=== PATIENT | female | born 1985 | race Caucasian/White ===

== ENCOUNTER 2019-06-24 13:48 | Outpatient (CLI) | payer OTHER | END 2019-06-24 13:55 | disposition home or self-care (01) | LOC: EKG 13:48 | DX: N80.5 Endometriosis of intestine (principal); D37.5 Neoplasm of uncertain behavior of rectum; D64.89 Other specified anemias; Z01.818 Encounter for other preprocedural examination; R79.89 Other specified abnormal findings of blood chemistry; Z01.812 Encounter for preprocedural laboratory examination; Z01.810 Encounter for preprocedural cardiovascular examination ==

== ENCOUNTER 2019-06-30 13:45 | Inpatient (IN) | payer OTHER ==
[~2019-06-30] VITALS: Ht 162.6 cm; Wt 89.8 kg
[2019-06-30] MEDS ORDERED: SERAQUEL PO (14:53)
[2019-06-30] MEDS ORDERED: TOPAMAX PO (14:53)
[2019-06-30] MEDS ORDERED: LITHIUM PO (14:54)
[2019-06-30] MEDS ORDERED: CLONAZEPAM0.5 M1 PO (14:54)
[2019-06-30] MEDS ORDERED: BELSOMRA10 MG PO (14:55)
[2019-06-30] MEDS ORDERED: SYNTH PO (14:55)
[2019-06-30] MEDS ORDERED: PRILOSEC OTC20 MG PO (14:56)
[2019-06-30] MEDS ORDERED: ZANTAC150 M3 PO (14:56)
[2019-06-30] MEDS ORDERED: IMITREX100 MG PO (14:56)
[2019-07-08] MEDS ORDERED: LITHIUM CARBON450 MG PO (11:01)
[2019-07-08] MEDS ORDERED: QUETIAPINE FUM400 MG PO (11:03)
[2019-07-08] MEDS ORDERED: TOPIRAMATE100 MG PO (11:04)
[2019-07-08] MEDS ORDERED: SYNTHROID50 MCG PO (11:04)
[2019-07-12] MEDS ORDERED: OXYC1TAB9 PO (15:15)
[2019-07-12] MEDS ORDERED: HYOSCYAMINE0.125 M1 SL (15:15)
[2019-07-12] MEDS ORDERED: IMODIUM A-D2 M2 PO (15:16)
[2019-07-12] MEDS ORDERED: INTESTINEX680 M1 PO (15:16)
[2019-07-12] MEDS ORDERED: ZANTAC150 M3 PO (15:16)
== END 2019-07-12 19:36 | disposition home or self-care (01) | DRG 331 ==
LOC: O/R 13:45 → SURH 07-08 07:30 → OB/GYN 07-12 17:20 → SURH 07-12 17:23
PROVIDERS: Surgery; ADMIT Obstetrics & Gynecology Gynecologic Oncology
PROC: 07TB4ZZ Resection of Mesenteric Lymphatic, Percutaneous Endoscopic Approach (ICD-10-PCS; 2019-07-08)
PROC: 0D1B4Z4 Bypass Ileum to Cutaneous, Percutaneous Endoscopic Approach (ICD-10-PCS; 2019-07-08)
PROC: 0DJD8ZZ Inspection of Lower Intestinal Tract, Via Natural or Artificial Opening Endoscopic (ICD-10-PCS; 2019-07-08)
PROC: 0UT94ZZ Resection of Uterus, Percutaneous Endoscopic Approach (ICD-10-PCS; 2019-07-08)
PROC: 0UT14ZZ Resection of Left Ovary, Percutaneous Endoscopic Approach (ICD-10-PCS; 2019-07-08)
PROC: 0UT64ZZ Resection of Left Fallopian Tube, Percutaneous Endoscopic Approach (ICD-10-PCS; 2019-07-08)
PROC: 0DTN4ZZ Resection of Sigmoid Colon, Percutaneous Endoscopic Approach (ICD-10-PCS; principal; 2019-07-08 12:45)
PROC: 0DTP4ZZ Resection of Rectum, Percutaneous Endoscopic Approach (ICD-10-PCS; 2019-07-08 12:45)
DX: N80.5 Endometriosis of intestine (principal); N72 Inflammatory disease of cervix uteri

== ENCOUNTER 2019-09-15 16:54 | Inpatient (IN) | payer OTHER ==
[~2019-09-15] VITALS: Ht 162.6 cm; Wt 83.0 kg
[~2019-09-15 16:54] MED LIST: BELSOMRA10 MG PO; CLONAZEPAM0.5 M1 PO; HYOSCYAMINE0.125 M1 SL; IMITREX100 MG PO; IMODIUM A-D2 M2 PO; INTESTINEX680 M1 PO; LITHIUM CARBON450 MG PO; LITHIUM PO; OXYC1TAB9 PO; PRILOSEC OTC20 MG PO; QUETIAPINE FUM400 MG PO; SERAQUEL PO; SYNTH PO; SYNTHROID50 MCG PO; TOPAMAX PO; TOPIRAMATE100 MG PO; ZANTAC150 M3 PO
[2019-10-05] MEDS ORDERED: LITHOBID300 M1 PO (15:33)
[2019-10-16] MEDS ORDERED: DICY20TA PO (12:58)
[2019-10-16] MEDS ORDERED: PRILOSEC OTC20 MG PO (12:58)
[2019-10-16] MEDS ORDERED: PERCOCET 5-3251 EACH PO (12:59)
== END 2019-10-16 14:32 | disposition home or self-care (01) | DRG 330 ==
LOC: O/R 10-11 07:30 → SURH 10-11 07:30 → SURG 10-11 09:30 → SURH 10-11 13:43
PROVIDERS: ADMIT Surgery
PROC: 0DQB4ZZ Repair Ileum, Percutaneous Endoscopic Approach (ICD-10-PCS; principal; 2019-10-11 09:30)
DX: Z43.2 Encounter for attention to ileostomy (principal); K91.31 Postprocedural partial intestinal obstruction; N80.5 Endometriosis of intestine; E11.9 Type 2 diabetes mellitus without complications; Z79.4 Long term (current) use of insulin

== ENCOUNTER → 2019-10-06 | Outpatient (CLI) | payer OTHER ==
[~2019-10-06] MED LIST changes: +DICY20TA PO; +LITHOBID300 M1 PO; +PERCOCET 5-3251 EACH PO
== END | disposition home or self-care (01) ==
LOC: RAD 09:36
DX: D37.5 Neoplasm of uncertain behavior of rectum (principal); K59.02 Outlet dysfunction constipation; R19.5 Other fecal abnormalities; N80.5 Endometriosis of intestine

== ENCOUNTER 2020-09-19 09:03 | Day surgery (SDC) | payer OTHER | END 2020-09-19 13:15 | disposition home or self-care (01) | LOC: AMB-ENDOS 09:03 | PROVIDERS: ATTEND Surgery | DX: D12.5 Benign neoplasm of sigmoid colon (principal); Z20.828 Contact with and (suspected) exposure to other viral communicable diseases ==

== ENCOUNTER 2021-01-18 17:30 | Emergency (ER) | payer OTHER ==
[~2021-01-18] VITALS: Ht 162.6 cm; Wt 83.9 kg
[2021-01-18] MEDS ORDERED: SEROQUEL400 MG PO (17:38)
== END 2021-01-18 22:40 | disposition home or self-care (01) ==
LOC: ER 17:30
DX: S00.83XA Contusion of other part of head, initial encounter (principal); S80.11XA Contusion of right lower leg, initial encounter; S80.01XA Contusion of right knee, initial encounter; S40.021A Contusion of right upper arm, initial encounter; M25.551 Pain in right hip; W10.8XXA Fall (on) (from) other stairs and steps, initial encounter; Y93.89 Activity, other specified; Y92.018 Other place in single-family (private) house as the place of occurrence of the external cause; Y99.8 Other external cause status

== ENCOUNTER 2022-04-05 12:11 | Emergency (ER) | payer OTHER ==
[~2022-04-05] VITALS: Ht 162.6 cm; Wt 83.9 kg
[~2022-04-05 12:11] MED LIST changes: +SEROQUEL400 MG PO
== END 2022-04-05 15:55 | disposition home or self-care (01) ==
LOC: ER 12:11
DX: R07.89 Other chest pain (principal); F41.9 Anxiety disorder, unspecified; F43.9 Reaction to severe stress, unspecified; Z91.013 Allergy to seafood; Z88.1 Allergy status to other antibiotic agents

== ENCOUNTER 2022-10-11 15:03 | Emergency (ER) | payer OTHER ==
[~2022-10-11] VITALS: Ht 162.6 cm; Wt 93.0 kg
== END 2022-10-11 21:56 | disposition home or self-care (01) ==
LOC: ER 15:03
DX: R10.9 Unspecified abdominal pain (principal)